=== PATIENT | female | born 1960 | race Asian ===

== ENCOUNTER 2021-04-28 08:36 | Outpatient (CLI) | payer OTHER | END 2021-04-28 08:37 | disposition home or self-care (01) | LOC: CSHULT 08:36 | PROVIDERS: ATTEND Physician Assistant | DX: E04.1 Nontoxic single thyroid nodule (principal); E04.2 Nontoxic multinodular goiter | CPT/HCPCS: 76536 ==

== ENCOUNTER 2021-04-28 09:27 | Outpatient (CLI) | payer OTHER | END 2021-04-28 09:28 | disposition home or self-care (01) | LOC: CSHMAMMO 09:27 | PROVIDERS: ATTEND Physician Assistant | DX: Z12.31 Encounter for screening mammogram for malignant neoplasm of breast (principal) | CPT/HCPCS: 77063; 77067 ==

== ENCOUNTER 2022-02-12 15:25 | Outpatient (CLI) | payer OTHER | END 2022-02-12 15:26 | disposition home or self-care (01) | LOC: CSHMAMMO 15:25 | PROVIDERS: ATTEND Physician Assistant | DX: M85.849 Other specified disorders of bone density and structure, unspecified hand (principal); M81.0 Age-related osteoporosis without current pathological fracture | CPT/HCPCS: 77080 ==